=== PATIENT | female | born 1945 | race Caucasian/White ===

== ENCOUNTER 2017-03-01 15:30 | Outpatient (RCR) | payer MEDICARE, SELFPAY ==
[2017-02-22 15:52] VITALS: BP 146/61; PULSE 60; RESP 18; TEMP 37.2; BMI 84.6
--- NOTE | 2017-02-23 16:10 | PCM.WC.HP ---
(1) Stage III pressure ulcer of left buttock Status: Acute Code(s): L89.323 - Pressure ulcer of left buttock, stage 3 (2) Generalized weakness Status: Acute Code(s): R53.1 - Weakness (3) Bipolar disorder Status: Chronic Code(s): F31.9 - Bipolar disorder, unspecified (4) CHF (congestive heart failure) Status: Chronic Code(s): I50.9 - Heart failure, unspecified Comment: diastolic (5) COPD (chronic obstructive pulmonary disease) Status: Chronic Code(s): J44.9 - Chronic obstructive pulmonary disease, unspecified (6) Diastolic dysfunction Status: Chronic Code(s): I51.9 - Heart disease, unspecified History of Present Illness Date of Service: 02/27/17 Chief Complaint: Non healing ulcer left buttock History of Wound: This is a 71-year-old white female who presents to the wound care center today with complaints of ulcer on left buttock. She has a past medical history as described above. The patient states that she has had sores on her buttocks for the past 2 months, however the right buttock sore has healed and the left sore on her buttock is persistent and continues to be painful and occasionally bleed at times. She states that she sits in her chair the majority of the time and denies any current use of offloading mechanisms. She states that the ulcer is progressively worsening. She does note pain but denies any purulent drainage. She states that the surrounding areas are excoriated at times. She does note that she is continent of both stool and urine. She denies any other alleviating or aggravating symptoms and has not tried any [id number] treatments for her ulcers. Past Medical History Past Medical History: Chronic Problems COPD (chronic obstructive pulmonary disease) (Chronic) Diastolic dysfunction (Chronic) Former heavy tobacco smoker (Chronic) quit 07/14/16 Osteoarthritis (Chronic) PVD (peripheral vascular disease) (Chronic) CHF (congestive heart failure) (Chronic) diastolic Diet-controlled diabetes mellitus (Chronic) Morbid obesity (Chronic) HTN (hypertension) (Chronic) Bipolar disorder (Chronic) Dyslipidemia (Chronic) Hyponatremia (Chronic) Surgical History: cataract, cholecystectomy, - - Right knee replacement, right ankle fracture open reduction March 2014 Allergies/Adverse Reactions: Allergies Iodinated Contrast- Oral and IV Dye [Iodinated Contrast Media - IV Dye] Allergy (Verified 02/22/17 16:01) Hives Penicillins Allergy (Verified 02/22/17 16:01) Rash shellfish derived Allergy (Verified 02/22/17 16:01) Rash tetracycline Allergy (Verified 02/22/17 16:01) Rash hydrocodone bitartrate [From Vicodin] Adverse Reaction (Unknown, Verified 02/22/17 16:01) Vomiting meperidine HCl [From Demerol] Adverse Reaction (Unknown, Verified 10/22/16 19:27) Other MAKES ME VERY ILL Home Medications: Ambulatory Orders Medication Instructions Recorded Atenolol [Tenormin (beta sol)] 50 mg PO DAILY 03/26/14 Oxcarbazepine [Trileptal] 600 mg PO BID 03/26/14 Risperidone [Risperdal] 1 mg PO QHS 03/26/14 Trazodone HCl 150 mg PO QHS 03/26/14 Aspirin [Aspirin, Baby] 81 mg PO DAILY@0800 #30 tab.chew 04/18/14 Cholecalciferol (VIT D3) [Vitamin 2,000 unit PO DAILY 10/17/15 D3] Clonazepam [Klonopin] 0.5 mg PO QHS PRN PRN 10/17/15 Clonidine HCl 0.1 mg PO BID 10/17/15 Clopidogrel Bisulfate [Plavix] 75 mg PO DAILY 10/17/15 Meloxicam [Mobic] 15 mg PO DAILY 10/17/15 Amlodipine [Norvasc] 10 mg PO DAILY #30 tablet 10/20/15 Citalopram [Celexa] 20 mg PO DAILY 10/22/16 Donepezil HCl 5 mg PO DAILY 10/22/16 Menthol/Lanolin/Calamine/Znox 1 applic TOPICAL TID #1 tube 10/24/16 [Calmoseptine Ointment] Nystatin Powder [Mycostatin Powder] 1 applic TOPICAL TID #1 bottle 10/24/16 - Family History Maternal Cancer - at age 46, Hypertension Paternal - - Committed suicide age 36 Sibling Cancer - 1 year ago of lung cancer Lives: Alone Smoking Status: Former smoker Review of Systems Constitutional: Denies: Chills, Fever, Weight Change Eyes: Denies: Pain, Vision Change HEENT: Denies: Difficulty Hearing, Difficulty Swallowing, Sinus Congestion Cardiovascular: Denies: Chest Pain, Palpitations Respiratory: Denies: Cough, Shortness of Breath Gastrointestinal: Denies: Diarrhea, Nausea, Vomiting Genitourinary: Denies: Dysuria, Hematuria Skin: Reports: Rash, Wounds Neurological: Denies: Confusion, Numbness, Tingling Psychiatric: Denies: Anxiety Endocrine: Denies: Heat/ Cold Intolerance, Polydipsia, Polyuria Hematologic/ Lymphatic: Denies: Easy Bruising, Easy Bleeding - Physical Exam Vital Signs Temp Pulse Resp BP 98.9 F 60 18 146/61 H 02/22/17 15:52 02/22/17 15:52 02/22/17 15:52 02/22/17 15:52 General: Alert, Oriented x3, Cooperative, No apparent distress HEENT: PERRLA, EOMI Neck: Supple, No JVD, Negative Carotid Bruits Lungs: Clear to auscultation Cardiovascular: Regular rate, Regular Rhythm, No murmurs, No Ectopic Activity Abdomen: Soft, Non Tender Extremities: No clubbing, No cyanosis, No edema, Capillary Refill Less than 3 Seconds, Peripheral Pulses Normal Skin: Ulcer/ Wound - Stage III pressure ulcer full-thickness ulcer without exposed tendon or muscle present on leftt buttocks with slough present, Excoriated - Bilateral buttocks Wound Measurements and Assessment - Nurse 1 - General Ulcer Measurement Start: 02/22/17 15:47 Freq: Status: Active Protocol: Activity Type Activity Date Activity User E-Sign Co-Sign Detail Recorded Client Recorded Date Recorded By Document 02/22/17 15:52 DL [id number] 02/22/17 15:57 DL 02/22/17 15:52 Wound Center Nurse 1 [Ulcer Assessment Protocol: RISHABH.WD.LOC] #3 R Buttocks -Current Size (cm) - Length 1.1 -Current Size (cm) - Width 0.8 -Current Size (cm) - Depth 0.1 -Total Square Cm 0.88 -Photo Taken Yes -Classification - Thickness Full Thickness without Exposed Support Structure -Exudate Amt None Present (0 %) -Wound Margin Distinct, Outline Attached -Granulation Amt Large (67-100%) -Granulation Quality Red -Necrosis Amt None Present (0 %) -Structure Exposed N/A -Texture (Breanne-wound Skin Appearance) No Abnormality -Moisture (Breanne-wound Skin Appearance Dry/Scaly ) -Color (Breanne-wound Skin Appearance) No Abnormality -Temperature (Breanne-wound Skin No Abnormality Appearance) (Pt Warm) -Ulcer Cleansing Rinsed/ Irrigated with Saline -Foul Odor after Cleansing No -Anesthetic Used 4% Lidocaine Solution WC - Nurse 2 - General Ulcer CM Notes Start: 02/22/17 15:47 Freq: Status: Active Protocol: Activity Type Activity Date Activity User E-Sign Co-Sign Detail Recorded Client Recorded Date Recorded By Document 02/22/17 16:54 DV [id number] 02/22/17 17:03 DV 02/22/17 16:54 Wound Center Nurse 2 [Procedure/Treatment] -Time 16:54 -Correct Patient Yes -Correct Side, Site, Position Yes -Correct Procedure Yes -Procedure Performed Yes -Type of Procedure Debridement -Clinical Debridement Subcutaneous -Post Debridement Size (cm) - Length 1.2 -Post Debridement Size (cm) - Width 1.0 -Post Debridement Size (cm) - Depth 0.2 -Total Square Cm 1.20 -Wound/Ulcer Outcome Not Healed -Ulcer Cleansing Rinsed/ Irrigated with Saline -Foul Odor after Cleansing No -Bioengineered Tissue No -Cetacaine [place] No -Bleeding Controlled with NA -Treatment Response Procedure Tolerated Well [See Physician Procedure note for Specifics] Pain Scale: 0-10 Numeric [Pain] -Is Patient Pain Free? Yes Musculoskeletal: No Tenderness to Palpation of Joints or Extremities Neurological: Cranial nerves II-XII grossly intact Psych/Mental Status: Normal Affect, Appropriate, Alert and oriented to time, place, person, mood and affect Debridement Note Post-Debridement Measurements/Treatment - Nurse 2 - General Ulcer CM Notes Start: 02/22/17 15:47 Freq: Status: Active Protocol: Activity Type Activity Date Activity User E-Sign Co-Sign Detail Recorded Client Recorded Date Recorded By Document 02/22/17 16:54 DV [id number] 02/22/17 17:03 DV 02/22/17 16:54 Wound Center Nurse 2 #3 R Buttocks -Time 16:54 -Correct Patient Yes -Correct Side, Site, Position Yes -Correct Procedure Yes -Procedure Performed Yes -Type of Procedure Debridement -Clinical Debridement Subcutaneous -Post Debridement Size (cm) - Length 1.2 -Post Debridement Size (cm) - Width 1.0 -Post Debridement Size (cm) - Depth 0.2 -Total Square Cm 1.20 -Wound/Ulcer Outcome Not Healed -Ulcer Cleansing Rinsed/ Irrigated with Saline -Foul Odor after Cleansing No -Bioengineered Tissue No -Cetacaine [place] No -Bleeding Controlled with NA -Treatment Response Procedure Tolerated Well Pain Scale: 0-10 Numeric Is Patient Pain Free? Yes Wound debrided: Stage III pressure ulcer left buttock Laterality: Left Wound Grade/Stage: Stage III Type of Debridement: Excisional debridement Anesthesia Used: 4% Lidocaine Solution Depth: in the subcutaneous layer Percentage of wound debrided: 100 Instrument Used: 5mm curette Tissue Removed: Fibrin and slough Severity: Fat Layer Exposed Amount of bleeding with debridement: Mild Bleeding Controlled with: Pressure Patient tolerated procedure well Assessment/Plan Assessment: Stage 3 pressure ulcer Left buttock. Generalized weakness Plan: Patient was seen and evaluated in the wound care center today and updated on her plan of care. A subcutaneous debridement was done of her stage III pressure ulcer of the left buttock. Patient tolerated the procedure well. Baseline labs ordered. Discussed with patient the importance of optimizing nutrition which includes increasing the amount of protein and vitamin C in her diet. Daily dressing changes of Aquacel AG ordered. Discussed with patient the importance of offloading mechanisms and keeping the surrounding skin and area dry and clean. Discussed red flag symptoms of systemic infection that require urgent medical attention. Currently no signs of infection at this time. This note was generated with [employer] dictation software. It may contain incorrect words, spelling, and punctuation that were not noted in checking the note before signing.
--- NOTE | 2017-02-23 16:20 | HP.PCM_ITS ---
(1) Stage III pressure ulcer of left buttock Status: Acute Code(s): L89.323 - Pressure ulcer of left buttock, stage 3 (2) Generalized weakness Status: Acute Code(s): R53.1 - Weakness (3) Bipolar disorder Status: Chronic Code(s): F31.9 - Bipolar disorder, unspecified (4) CHF (congestive heart failure) Status: Chronic Code(s): I50.9 - Heart failure, unspecified Comment: diastolic (5) COPD (chronic obstructive pulmonary disease) Status: Chronic Code(s): J44.9 - Chronic obstructive pulmonary disease, unspecified (6) Diastolic dysfunction Status: Chronic Code(s): I51.9 - Heart disease, unspecified History of Present Illness Date of Service: 02/27/17 Chief Complaint: Non healing ulcer left buttock History of Wound: This is a 71-year-old white female who presents to the wound care center today with complaints of ulcer on left buttock. She has a past medical history as described above. The patient states that she has had sores on her buttocks for the past 2 months, however the right buttock sore has healed and the left sore on her buttock is persistent and continues to be painful and occasionally bleed at times. She states that she sits in her chair the majority of the time and denies any current use of offloading mechanisms. She states that the ulcer is progressively worsening. She does note pain but denies any purulent drainage. She states that the surrounding areas are excoriated at times. She does note that she is continent of both stool and urine. She denies any other alleviating or aggravating symptoms and has not tried any [id number] treatments for her ulcers. Past Medical History Past Medical History: Chronic Problems COPD (chronic obstructive pulmonary disease) (Chronic) Diastolic dysfunction (Chronic) Former heavy tobacco smoker (Chronic) quit 07/14/16 Osteoarthritis (Chronic) PVD (peripheral vascular disease) (Chronic) CHF (congestive heart failure) (Chronic) diastolic Diet-controlled diabetes mellitus (Chronic) Morbid obesity (Chronic) HTN (hypertension) (Chronic) Bipolar disorder (Chronic) Dyslipidemia (Chronic) Hyponatremia (Chronic) Surgical History: cataract, cholecystectomy, - - Right knee replacement, right ankle fracture open reduction March 2014 Allergies/Adverse Reactions: Allergies Iodinated Contrast- Oral and IV Dye [Iodinated Contrast Media - IV Dye] Allergy (Verified 02/22/17 16:01) Hives Penicillins Allergy (Verified 02/22/17 16:01) Rash shellfish derived Allergy (Verified 02/22/17 16:01) Rash tetracycline Allergy (Verified 02/22/17 16:01) Rash hydrocodone bitartrate [From Vicodin] Adverse Reaction (Unknown, Verified 16:01) Vomiting meperidine HCl [From Demerol] Adverse Reaction (Unknown, Verified 10/22/16 19:27 ) Other MAKES ME VERY ILL Home Medications: Ambulatory Orders Medication Instructions Recorded Atenolol [Tenormin (beta sol)] 50 mg PO DAILY 03/26/14 Oxcarbazepine [Trileptal] 600 mg PO BID 03/26/14 Risperidone [Risperdal] 1 mg PO QHS 03/26/14 Trazodone HCl 150 mg PO QHS 03/26/14 Aspirin [Aspirin, Baby] 81 mg PO DAILY@0800 #30 tab.chew 04/18/14 Cholecalciferol (VIT D3) [Vitamin 2,000 unit PO DAILY 10/17/15 D3] Clonazepam [Klonopin] 0.5 mg PO QHS PRN PRN 10/17/15 Clonidine HCl 0.1 mg PO BID 10/17/15 Clopidogrel Bisulfate [Plavix] 75 mg PO DAILY 10/17/15 Meloxicam [Mobic] 15 mg PO DAILY 10/17/15 Amlodipine [Norvasc] 10 mg PO DAILY #30 tablet 10/20/15 Citalopram [Celexa] 20 mg PO DAILY 10/22/16 Donepezil HCl 5 mg PO DAILY 10/22/16 Menthol/Lanolin/Calamine/Znox 1 applic TOPICAL TID #1 tube 10/24/16 [Calmoseptine Ointment] Nystatin Powder [Mycostatin Powder] 1 applic TOPICAL TID #1 bottle 10/24/16 - Family History Maternal Cancer - at age 46, Hypertension Paternal - - Committed suicide age 36 Sibling Cancer - 1 year ago of lung cancer Lives: Alone Smoking Status: Former smoker Review of Systems Constitutional: Denies: Chills, Fever, Weight Change Eyes: Denies: Pain, Vision Change HEENT: Denies: Difficulty Hearing, Difficulty Swallowing, Sinus Congestion Cardiovascular: Denies: Chest Pain, Palpitations Respiratory: Denies: Cough, Shortness of Breath Gastrointestinal: Denies: Diarrhea, Nausea, Vomiting Genitourinary: Denies: Dysuria, Hematuria Skin: Reports: Rash, Wounds Neurological: Denies: Confusion, Numbness, Tingling Psychiatric: Denies: Anxiety Endocrine: Denies: Heat/ Cold Intolerance, Polydipsia, Polyuria Hematologic/ Lymphatic: Denies: Easy Bruising, Easy Bleeding - Physical Exam Vital Signs Temp Pulse Resp BP 98.9 F 60 18 146/61 H 02/22/17 15:52 02/22/17 15:52 02/22/17 15:52 02/22/17 15:52 General: Alert, Oriented x3, Cooperative, No apparent distress HEENT: PERRLA, EOMI Neck: Supple, No JVD, Negative Carotid Bruits Lungs: Clear to auscultation Cardiovascular: Regular rate, Regular Rhythm, No murmurs, No Ectopic Activity Abdomen: Soft, Non Tender Extremities: No clubbing, No cyanosis, No edema, Capillary Refill Less than 3 Seconds, Peripheral Pulses Normal Skin: Ulcer/ Wound - Stage III pressure ulcer full-thickness ulcer without exposed tendon or muscle present on leftt buttocks with slough present, Excoriated - Bilateral buttocks Wound Measurements and Assessment - Nurse 1 - General Ulcer Measurement Start: 02/22/17 15:47 Freq: Status: Active Protocol: Activity Type Activity Date Activity User E-Sign Co-Sign Detail Recorded Client Recorded Date Recorded By Document 02/22/17 15:52 DL [id number] 02/22/17 15:57 DL 02/22/17 15:52 Wound Center Nurse 1 [Ulcer Assessment Protocol: RISHABH.WD.LOC] #3 R Buttocks -Current Size (cm) - Length 1.1 -Current Size (cm) - Width 0.8 -Current Size (cm) - Depth 0.1 -Total Square Cm 0.88 -Photo Taken Yes -Classification - Thickness Full Thickness without Exposed Support Structure -Exudate Amt None Present (0 %) -Wound Margin Distinct, Outline Attached -Granulation Amt Large (67-100%) -Granulation Quality Red -Necrosis Amt None Present (0 %) -Structure Exposed N/A -Texture (Breanne-wound Skin Appearance) No Abnormality -Moisture (Breanne-wound Skin Appearance Dry/Scaly ) -Color (Breanne-wound Skin Appearance) No Abnormality -Temperature (Breanne-wound Skin No Abnormality Appearance) (Pt Warm) -Ulcer Cleansing Rinsed/ Irrigated with Saline -Foul Odor after Cleansing No -Anesthetic Used 4% Lidocaine Solution WC - Nurse 2 - General Ulcer CM Notes Start: 02/22/17 15:47 Freq: Status: Active Protocol: Activity Type Activity Date Activity User E-Sign Co-Sign Detail Recorded Client Recorded Date Recorded By Document 02/22/17 16:54 DV [id number] 02/22/17 17:03 DV 02/22/17 16:54 Wound Center Nurse 2 [Procedure/Treatment] -Time 16:54 -Correct Patient Yes -Correct Side, Site, Position Yes -Correct Procedure Yes -Procedure Performed Yes -Type of Procedure Debridement -Clinical Debridement Subcutaneous -Post Debridement Size (cm) - Length 1.2 -Post Debridement Size (cm) - Width 1.0 -Post Debridement Size (cm) - Depth 0.2 -Total Square Cm 1.20 -Wound/Ulcer Outcome Not Healed -Ulcer Cleansing Rinsed/ Irrigated with Saline -Foul Odor after Cleansing No -Bioengineered Tissue No -Cetacaine [place] No -Bleeding Controlled with NA -Treatment Response Procedure Tolerated Well [See Physician Procedure note for Specifics] Pain Scale: 0-10 Numeric [Pain] -Is Patient Pain Free? Yes Musculoskeletal: No Tenderness to Palpation of Joints or Extremities Neurological: Cranial nerves II-XII grossly intact Psych/Mental Status: Normal Affect, Appropriate, Alert and oriented to time, place, person, mood and affect Debridement Note Post-Debridement Measurements/Treatment - Nurse 2 - General Ulcer CM Notes Start: 02/22/17 15:47 Freq: Status: Active Protocol: Activity Type Activity Date Activity User E-Sign Co-Sign Detail Recorded Client Recorded Date Recorded By Document 02/22/17 16:54 DV [id number] 02/22/17 17:03 DV 02/22/17 16:54 Wound Center Nurse 2 #3 R Buttocks -Time 16:54 -Correct Patient Yes -Correct Side, Site, Position Yes -Correct Procedure Yes -Procedure Performed Yes -Type of Procedure Debridement -Clinical Debridement Subcutaneous -Post Debridement Size (cm) - Length 1.2 -Post Debridement Size (cm) - Width 1.0 -Post Debridement Size (cm) - Depth 0.2 -Total Square Cm 1.20 -Wound/Ulcer Outcome Not Healed -Ulcer Cleansing Rinsed/ Irrigated with Saline -Foul Odor after Cleansing No -Bioengineered Tissue No -Cetacaine [place] No -Bleeding Controlled with NA -Treatment Response Procedure Tolerated Well Pain Scale: 0-10 Numeric Is Patient Pain Free? Yes Wound debrided: Stage III pressure ulcer left buttock Laterality: Left Wound Grade/Stage: Stage III Type of Debridement: Excisional debridement Anesthesia Used: 4% Lidocaine Solution Depth: in the subcutaneous layer Percentage of wound debrided: 100 Instrument Used: 5mm curette Tissue Removed: Fibrin and slough Severity: Fat Layer Exposed Amount of bleeding with debridement: Mild Bleeding Controlled with: Pressure Patient tolerated procedure well Assessment/Plan Assessment: Stage 3 pressure ulcer Left buttock. Generalized weakness Plan: Patient was seen and evaluated in the wound care center today and updated on her plan of care. A subcutaneous debridement was done of her stage III pressure ulcer of the left buttock. Patient tolerated the procedure well. Baseline labs ordered. Discussed with patient the importance of optimizing nutrition which includes increasing the amount of protein and vitamin C in her diet. Daily dressing changes of Aquacel AG ordered. Discussed with patient the importance of offloading mechanisms and keeping the surrounding skin and area dry and clean. Discussed red flag symptoms of systemic infection that require urgent medical attention. Currently no signs of infection at this time. This note was generated with [employer] dictation software. It may contain incorrect words, spelling, and punctuation that were not noted in checking the note before signing.
[2017-03-01 15:59] VITALS: BP 153/76; PULSE 63; RESP 22; TEMP 36.6; BMI 84.6
--- NOTE | 2017-03-01 20:46 | PCM.WC.PN ---
(1) Stage III pressure ulcer of left buttock Status: Inactive Current Visit: Yes Code(s): L89.323 - Pressure ulcer of left buttock, stage 3 (2) Generalized weakness Status: Inactive Current Visit: Yes Code(s): R53.1 - Weakness (3) Bipolar disorder Status: Inactive Current Visit: No Code(s): F31.9 - Bipolar disorder, unspecified (4) CHF (congestive heart failure) Status: Inactive Current Visit: No Code(s): I50.9 - Heart failure, unspecified Comment: diastolic (5) COPD (chronic obstructive pulmonary disease) Status: Chronic Current Visit: No Qualifiers: COPD type: unspecified COPD Qualified Code(s): J44.9 - Chronic obstructive pulmonary disease, unspecified Code(s): J44.9 - Chronic obstructive pulmonary disease, unspecified (6) Diastolic dysfunction Status: Chronic Current Visit: No Code(s): I51.9 - Heart disease, unspecified Type of Wound Date of Service: 03/01/17 Chief Complaint: Non healing ulcer left buttock History of Wound: This is a 71-year-old white female who presents to the wound care center today with complaints of ulcer on left buttock. She has a past medical history as described above. The patient states that she has had sores on her buttocks for the past 2 months, however the right buttock sore has healed and the left sore on her buttock is persistent and continues to be painful and occasionally bleed at times. She states that she sits in her chair the majority of the time and denies any current use of offloading mechanisms. She states that the ulcer is progressively worsening. She does note pain but denies any purulent drainage. She states that the surrounding areas are excoriated at times. She does note that she is continent of both stool and urine. She denies any other alleviating or aggravating symptoms and has not tried any [id number]-lwmvxgz treatments for her ulcers. Progress of Wound: Stable, improving. - Physical Exam Vital Signs Temp Pulse Resp BP 97.9 F 63 22 H 153/76 H 03/01/17 15:59 03/01/17 15:59 03/01/17 15:59 03/01/17 15:59 General: Alert, Oriented x3, Cooperative, No apparent distress Cardiovascular: Regular rate Extremities: No clubbing, No cyanosis, No edema, Capillary Refill Less than 3 Seconds Skin: Ulcer/ Wound - Stage III pressure ulcer left buttock, no signs of infection at this time, wound edges somewhat macerated though improving, excoriation on left and right buttocks resolving Wound Measurements and Assessment - Nurse 1 - General Ulcer Measurement Start: 02/22/17 15:47 Freq: Status: Active Protocol: Activity Type Activity Date Activity User E-Sign Co-Sign Detail Recorded Client Recorded Date Recorded By Document 03/01/17 15:59 DL [id number] 03/01/17 16:03 DL 03/01/17 15:59 Wound Center Nurse 1 [Ulcer Assessment Protocol: RISHABH.WD.LOC] #3 Left Buttock -Current Size (cm) - Length 0.8 -Current Size (cm) - Width 0.7 -Current Size (cm) - Depth 0.1 -Total Square Cm 0.56 -Photo Taken No -Exudate Amt Small (1-33%) -Exudate Type Serosanguineous -Wound Margin Distinct, Outline Attached -Granulation Amt Large (67-100%) -Granulation Quality Red -Necrosis Amt None Present (0 %) -Structure Exposed N/A -Texture (Breanne-wound Skin Appearance) Scarring -Moisture (Breanne-wound Skin Appearance No Abnormality ) -Color (Breanne-wound Skin Appearance) Ecchymosis -Temperature (Breanne-wound Skin No Abnormality Appearance) (Pt Warm) -Ulcer Cleansing Rinsed/ Irrigated with Saline -Foul Odor after Cleansing No -Anesthetic Used 4% Lidocaine Solution - Nurse 2 - General Ulcer CM Notes Start: 02/22/17 15:47 Freq: Status: Active Protocol: Activity Type Activity Date Activity User E-Sign Co-Sign Detail Recorded Client Recorded Date Recorded By Document 03/01/17 17:09 DV [id number] 03/01/17 17:11 DV 03/01/17 17:09 Wound Center Nurse 2 [Procedure/Treatment] -Time 17:10 -Correct Patient Yes -Correct Side, Site, Position Yes -Correct Procedure Yes -Procedure Performed No -Post Debridement Size (cm) - Length 1.0 -Post Debridement Size (cm) - Width 0.9 -Post Debridement Size (cm) - Depth 0.1 -Total Square Cm 0.90 -Wound/Ulcer Outcome Not Healed -Ulcer Cleansing Rinsed/ Irrigated with Saline -Foul Odor after Cleansing No -Bioengineered Tissue No -Cetacaine [place] No -Bleeding Controlled with Pressure -Treatment Response Procedure Tolerated Well [See Physician Procedure note for Specifics] Pain Scale: 0-10 Numeric [Pain] -Is Patient Pain Free? Yes Musculoskeletal: No Tenderness to Palpation of Joints or Extremities Psych/Mental Status: Normal Affect, Appropriate, Alert and oriented to time, place, person, mood and affect Debridement Note Post-Debridement Measurements/Treatment WC - Nurse 2 - General Ulcer CM Notes Start: 02/22/17 15:47 Freq: Status: Active Protocol: Activity Type Activity Date Activity User E-Sign Co-Sign Detail Recorded Client Recorded Date Recorded By Document 02/22/17 16:54 DV [id number] 02/22/17 17:03 DV Document 03/01/17 17:09 DV [id number] 03/01/17 17:11 DV 02/22/17 03/01/17 16:54 17:09 Wound Center Nurse 2 #3 Left Buttock -Time 16:54 17:10 -Correct Patient Yes Yes -Correct Side, Site, Position Yes Yes -Correct Procedure Yes Yes -Procedure Performed Yes No -Type of Procedure Debridement -Clinical Debridement Subcutaneous -Post Debridement Size (cm) - Length 1.2 1.0 -Post Debridement Size (cm) - Width 1.0 0.9 -Post Debridement Size (cm) - Depth 0.2 0.1 -Total Square Cm 1.20 0.90 -Wound/Ulcer Outcome Not Healed Not Healed -Ulcer Cleansing Rinsed/ Rinsed/ Irrigated with Irrigated with Saline Saline -Foul Odor after Cleansing No No -Bioengineered Tissue No No -Cetacaine [place] No No -Bleeding Controlled with NA Pressure -Treatment Response Procedure Procedure Tolerated Well Tolerated Well Pain Scale: 0-10 Numeric Is Patient Pain Free? Yes Yes Wound debrided: Stage III pressure ulcer left buttock Laterality: Left Wound Grade/Stage: Stage III Anesthesia Used: 4% Lidocaine Solution Depth: in the subcutaneous layer Percentage of wound debrided: 100 Instrument Used: 5mm curette Tissue Removed: Fibrin, slough, devitalized maceration tissue removed from wound and edges Severity: Fat Layer Exposed Amount of bleeding with debridement: Mild Bleeding Controlled with: Pressure Patient tolerated procedure well Assessment/Plan Assessment: Stage 3 pressure ulcer Left buttock. Generalized weakness Plan: Patient was seen and evaluated in the wound care center today and updated on her plan of care. A subcutaneous debridement was done of her stage III pressure ulcer of the left buttock. Patient tolerated the procedure well. Baseline labs pending. Discussed with patient the importance of optimizing nutrition which includes increasing the amount of protein and vitamin C in her diet. Daily dressing changes of Aquacel AG ordered. Wound edges were somewhat macerated and patient admitted that her was putting some triple antibiotic ointment on the wound at times. Advised patient to no longer do this and strictly use the Aquacel Ag. Discussed with patient the importance of offloading mechanisms and keeping the surrounding skin and area dry and clean. Discussed red flag symptoms of systemic infection that require urgent medical attention. Currently no signs of infection at this time. This note was generated with [employer] dictation software. It may contain incorrect words, spelling, and punctuation that were not noted in checking the note before signing. Code Visit 111xxx-113xx: [id number] Vianney subq tissue 20 sq cm/<
--- NOTE | 2017-03-02 10:53 | PN.PCM_ITS ---
(1) Stage III pressure ulcer of left buttock Status: Inactive Current Visit: Yes Code(s): L89.323 - Pressure ulcer of left buttock, stage 3 (2) Generalized weakness Status: Inactive Current Visit: Yes Code(s): R53.1 - Weakness (3) Bipolar disorder Status: Inactive Current Visit: No Code(s): F31.9 - Bipolar disorder, unspecified (4) CHF (congestive heart failure) Status: Inactive Current Visit: No Code(s): I50.9 - Heart failure, unspecified Comment: diastolic (5) COPD (chronic obstructive pulmonary disease) Status: Chronic Current Visit: No Qualifiers: COPD type: unspecified COPD Qualified Code(s): J44.9 - Chronic obstructive pulmonary disease, unspecified Code(s): J44.9 - Chronic obstructive pulmonary disease, unspecified (6) Diastolic dysfunction Status: Chronic Current Visit: No Code(s): I51.9 - Heart disease, unspecified Type of Wound Date of Service: 03/01/17 Chief Complaint: Non healing ulcer left buttock History of Wound: This is a 71-year-old white female who presents to the wound care center today with complaints of ulcer on left buttock. She has a past medical history as described above. The patient states that she has had sores on her buttocks for the past 2 months, however the right buttock sore has healed and the left sore on her buttock is persistent and continues to be painful and occasionally bleed at times. She states that she sits in her chair the majority of the time and denies any current use of offloading mechanisms. She states that the ulcer is progressively worsening. She does note pain but denies any purulent drainage. She states that the surrounding areas are excoriated at times. She does note that she is continent of both stool and urine. She denies any other alleviating or aggravating symptoms and has not tried any werj-zdt-tmouilm treatments for her ulcers. Progress of Wound: Stable, improving. - Physical Exam Vital Signs Temp Pulse Resp BP 97.9 F 63 22 H 153/76 H 03/01/17 15:59 03/01/17 15:59 03/01/17 15:59 03/01/17 15:59 General: Alert, Oriented x3, Cooperative, No apparent distress Cardiovascular: Regular rate Extremities: No clubbing, No cyanosis, No edema, Capillary Refill Less than 3 Seconds Skin: Ulcer/ Wound - Stage III pressure ulcer left buttock, no signs of infection at this time, wound edges somewhat macerated though improving, excoriation on left and right buttocks resolving Wound Measurements and Assessment - Nurse 1 - General Ulcer Measurement Start: 02/22/17 15:47 Freq: Status: Active Protocol: Activity Type Activity Date Activity User E-Sign Co-Sign Detail Recorded Client Recorded Date Recorded By Document 03/01/17 15:59 DL [id number] 03/01/17 16:03 DL 03/01/17 15:59 Wound Center Nurse 1 [Ulcer Assessment Protocol: RISHABH.WD.LOC] #3 Left Buttock -Current Size (cm) - Length 0.8 -Current Size (cm) - Width 0.7 -Current Size (cm) - Depth 0.1 -Total Square Cm 0.56 -Photo Taken No -Exudate Amt Small (1-33%) -Exudate Type Serosanguineous -Wound Margin Distinct, Outline Attached -Granulation Amt Large (67-100%) -Granulation Quality Red -Necrosis Amt None Present (0 %) -Structure Exposed N/A -Texture (Beranne-wound Skin Appearance) Scarring -Moisture (Breanne-wound Skin Appearance No Abnormality ) -Color (Breanne-wound Skin Appearance) Ecchymosis -Temperature (Breanne-wound Skin No Abnormality Appearance) (Pt Warm) -Ulcer Cleansing Rinsed/ Irrigated with Saline -Foul Odor after Cleansing No -Anesthetic Used 4% Lidocaine Solution - Nurse 2 - General Ulcer CM Notes Start: 02/22/17 15:47 Freq: Status: Active Protocol: Activity Type Activity Date Activity User E-Sign Co-Sign Detail Recorded Client Recorded Date Recorded By Document 03/01/17 17:09 DV [id number] 03/01/17 17:11 DV 03/01/17 17:09 Wound Center Nurse 2 [Procedure/Treatment] -Time 17:10 -Correct Patient Yes -Correct Side, Site, Position Yes -Correct Procedure Yes -Procedure Performed No -Post Debridement Size (cm) - Length 1.0 -Post Debridement Size (cm) - Width 0.9 -Post Debridement Size (cm) - Depth 0.1 -Total Square Cm 0.90 -Wound/Ulcer Outcome Not Healed -Ulcer Cleansing Rinsed/ Irrigated with Saline -Foul Odor after Cleansing No -Bioengineered Tissue No -Cetacaine [place] No -Bleeding Controlled with Pressure -Treatment Response Procedure Tolerated Well [See Physician Procedure note for Specifics] Pain Scale: 0-10 Numeric [Pain] -Is Patient Pain Free? Yes Musculoskeletal: No Tenderness to Palpation of Joints or Extremities Psych/Mental Status: Normal Affect, Appropriate, Alert and oriented to time, place, person, mood and affect Debridement Note Post-Debridement Measurements/Treatment WC - Nurse 2 - General Ulcer CM Notes Start: 02/22/17 15:47 Freq: Status: Active Protocol: Activity Type Activity Date Activity User E-Sign Co-Sign Detail Recorded Client Recorded Date Recorded By Document 02/22/17 16:54 DV [id number] 02/22/17 17:03 DV Document 03/01/17 17:09 DV [id number] 03/01/17 17:11 DV 02/22/17 03/01/17 16:54 17:09 Wound Center Nurse 2 #3 Left Buttock -Time 16:54 17:10 -Correct Patient Yes Yes -Correct Side, Site, Position Yes Yes -Correct Procedure Yes Yes -Procedure Performed Yes No -Type of Procedure Debridement -Clinical Debridement Subcutaneous -Post Debridement Size (cm) - Length 1.2 1.0 -Post Debridement Size (cm) - Width 1.0 0.9 -Post Debridement Size (cm) - Depth 0.2 0.1 -Total Square Cm 1.20 0.90 -Wound/Ulcer Outcome Not Healed Not Healed -Ulcer Cleansing Rinsed/ Rinsed/ Irrigated with Irrigated with Saline Saline -Foul Odor after Cleansing No No -Bioengineered Tissue No No -Cetacaine [place] No No -Bleeding Controlled with NA Pressure -Treatment Response Procedure Procedure Tolerated Well Tolerated Well Pain Scale: 0-10 Numeric Is Patient Pain Free? Yes Yes Wound debrided: Stage III pressure ulcer left buttock Laterality: Left Wound Grade/Stage: Stage III Anesthesia Used: 4% Lidocaine Solution Depth: in the subcutaneous layer Percentage of wound debrided: 100 Instrument Used: 5mm curette Tissue Removed: Fibrin, slough, devitalized maceration tissue removed from wound and edges Severity: Fat Layer Exposed Amount of bleeding with debridement: Mild Bleeding Controlled with: Pressure Patient tolerated procedure well Assessment/Plan Assessment: Stage 3 pressure ulcer Left buttock. Generalized weakness Plan: Patient was seen and evaluated in the wound care center today and updated on her plan of care. A subcutaneous debridement was done of her stage III pressure ulcer of the left buttock. Patient tolerated the procedure well. Baseline labs pending. Discussed with patient the importance of optimizing nutrition which includes increasing the amount of protein and vitamin C in her diet. Daily dressing changes of Aquacel AG ordered. Wound edges were somewhat macerated and patient admitted that her was putting some triple antibiotic ointment on the wound at times. Advised patient to no longer do this and strictly use the Aquacel Ag. Discussed with patient the importance of offloading mechanisms and keeping the surrounding skin and area dry and clean. Discussed red flag symptoms of systemic infection that require urgent medical attention. Currently no signs of infection at this time. This note was generated with [employer] dictation software. It may contain incorrect words, spelling, and punctuation that were not noted in checking the note before signing. Code Visit 111xxx-113xx: [id number] Vianney subq tissue 20 sq cm/<
== END 2017-03-14 23:59 ==
LOC: WC 15:30
PROVIDERS: Family Provider Internal Medicine; PCP Internal Medicine; Visit Provider Nurse Practitioner Family
DX: I73.9 Peripheral vascular disease, unspecified (principal); L89.323 Pressure ulcer of left buttock, stage 3; R53.1 Weakness; F31.9 Bipolar disorder, unspecified; J44.9 Chronic obstructive pulmonary disease, unspecified; I50.32 Chronic diastolic (congestive) heart failure; M19.90 Unspecified osteoarthritis, unspecified site; I11.0 Hypertensive heart disease with heart failure; E78.5 Hyperlipidemia, unspecified; E66.01 Morbid (severe) obesity due to excess calories; Z71.3 Dietary counseling and surveillance; Z87.891 Personal history of nicotine dependence; Z79.899 Other long term (current) drug therapy; Z79.82 Long term (current) use of aspirin; Z79.02 Long term (current) use of antithrombotics/antiplatelets
CPT/HCPCS: 11042; 99213; G0463

== ENCOUNTER 2017-09-28 19:13 | Emergency (ER) | payer MEDICARE, SELFPAY ==
[2017-09-28 19:14] VITALS: BP 162/95; PULSE 63; RESP 16; TEMP 37.1; O2SAT 92; BMI 43.2
--- NOTE | 2017-09-28 19:41 | ED.VISSUMM ---
- ER Visit Summary Date of Service: 09/28/17 Chief Complaint: My medications wrong History of Present Illness: The patient is a [address] Chávez. She reports that at noon she actually took her night medications which include trazodone, Risperdal, gabapentin, and Benadryl. She was supposed to have taken Lasix and amlodipine. She reports that the visiting nurse came out and found that her blood pressure was 146-198 systolic over 75-101 diastolic. Review of systems: General: No fever, chills, cold sweats. Cardiovascular: No chest pain, palpitations. Respiratory: No cough, shortness of breath, dyspnea on exertion. Gastrointestinal: No abdominal pain, nausea, vomiting, diarrhea, melena, or hematochezia. Genitourinary: No dysuria, frequency, hematuria. Skin: No rash. Neuro: No headache, numbness, weakness. Physical Examination: Vitals: Stable. Afebrile. General: Well-nourished and well-developed. Head: Normocephalic atraumatic. Neck: Supple, no lymphadenopathy. No JVD. Nontender. Cardiovascular: Regular rate and rhythm. No murmurs. Respiratory: No respiratory distress. Clear to auscultation bilaterally. Abdominal: Soft, nontender, nondistended, normal bowel sounds. No guarding, rebound, or peritoneal signs. Back: Nontender. Extremities: Nontender, no edema. Skin: Normal color, no rash. Neurologic: Alert and oriented ?3. Cranial nerves II through XII are intact. Normal strength and sensation. Psych: Normal affect. Emergency Department Course and Treatment: Patient took her Lasix and amlodipine approximately 2 hours prior to coming emergency department. Her blood pressure is now stable. She feels well and would like to go home. Treatment Plan: Patient be discharged instructions are per primary care physician 1 to days not improving. Return to the emergency department for any worsening symptoms. Disposition: To home in improved and stable condition. Impression: 1. Medication error. This note was generated with [employer] software. It may contain incorrect words, spelling, and punctuation that were not noted in review of the chart prior to signing ED Disposition - Plan for ED Patient: Disposition: Home or Assisted Living Chief Complaint: Weakness Instructions: ED Overdose Accidental Referrals: Zach Chávez MD [Primary Care Provider] - 1-2 Days if not improving
[2017-09-28 19:55] VITALS: BP 125/77; PULSE 87; RESP 16; O2SAT 98
== END 2017-09-28 19:56 | disposition home or self-care (01) ==
LOC: ED 19:42
PROVIDERS: Emergency Provider Emergency Medicine; Family Provider Internal Medicine; PCP Internal Medicine
DX: T43.211A Poisoning by selective serotonin and norepinephrine reuptake inhibitors, accidental (unintentional), initial encounter (principal); T43.591A Poisoning by other antipsychotics and neuroleptics, accidental (unintentional), initial encounter; T42.6X1A Poisoning by other antiepileptic and sedative-hypnotic drugs, accidental (unintentional), initial encounter; T45.0X1A Poisoning by antiallergic and antiemetic drugs, accidental (unintentional), initial encounter; I10 Essential (primary) hypertension; Y92.9 Unspecified place or not applicable; E78.00 Pure hypercholesterolemia, unspecified; J44.9 Chronic obstructive pulmonary disease, unspecified; F32.9 Major depressive disorder, single episode, unspecified; Z79.82 Long term (current) use of aspirin; Z79.01 Long term (current) use of anticoagulants; Z79.899 Other long term (current) drug therapy
CPT/HCPCS: 99282

== ENCOUNTER → 2018-05-23 12:10 | Outpatient (CLI) | payer MEDICARE, SELFPAY ==
--- NOTE | 2018-05-23 12:15 | RAD_ITS ---
STUDY: X-RAY - CERVICAL SPINE REASON FOR EXAM: Female, 72 years old. Chronic pain TECHNIQUE: Frontal, lateral, and odontoid view(s) of the cervical spine were obtained. COMPARISON: None FINDINGS: Normal anterior atlantoaxial articulation. Normal odontoid process. There is limited visualization of the cervicothoracic junction. Normal cervical lordosis. There is diffuse demineralization of the cervical spine. Normal disc space heights. There is no fracture. There are atherosclerotic vascular calcifications of the carotid arteries. RAD/Cerv Spine 2 or 3 Views IMPRESSION: No fracture. Disc spaces are well-preserved. Electronically Signed: Harpal Fuentes MD at 15:51 EDT , Service support ,
--- NOTE | 2018-05-23 12:15 | RAD_ITS ---
STUDY: X-RAY - LUMBAR SPINE REASON FOR EXAM: Female, 72 years old. Pain. TECHNIQUE: 3 view(s) of the lumbar spine were obtained. COMPARISON: October 20, 2015 FINDINGS: Normal lumbar lordosis. There is no substantial scoliosis. There is a normal alignment of the vertebrae. Normal vertebral bodies and endplates. There is disc space narrowing at L5-S1. There is no demonstrated fracture. There is atherosclerotic calcification of the abdominal aorta without a demonstrated aneurysm. RAD/Lumbar Spine 2 or 3 Views IMPRESSION: Degenerative changes of the spine, as detailed above. Electronically Signed: Harpal Fuentes MD at 15:50 EDT , Service support ,
--- NOTE | 2018-05-23 12:15 | RAD_ITS ---
STUDY: X-RAY - THORACIC SPINE REASON FOR EXAM: Female, 72 years old. Chronic back pain TECHNIQUE: 4 view(s) of the thoracic spine were obtained. COMPARISON: None. FINDINGS: Normal kyphosis of the thoracic spine. There is no substantial scoliosis. There is multilevel endplate spondylosis of the thoracic vertebrae. There is multilevel disc space narrowing of the thoracic spine. The soft tissue structures are unremarkable. RAD/Thoracic Spine 3 Views IMPRESSION: Degenerative changes without acute findings Electronically Signed: Bob Merino DO at 13:43 EDT Tel , Service support ,
--- NOTE | 2018-05-23 12:16 | RAD_ITS ---
STUDY: X-RAY - RIGHT KNEE REASON FOR EXAM: Female, 72 years old. Chronic pain. TECHNIQUE: 2 view(s) of the knee. COMPARISON: March 26, 2014. FINDINGS: There is demineralization of the visualized distal femur. There is demineralization of the tibia and fibula. Normal proximal tibiofibular articulation. There is knee replacement.. Alignment is anatomic. Appearance is stable . There are atherosclerotic calcifications. RAD/Knee 1 or 2 Views IMPRESSION: Stable knee replacement. Electronically Signed: Harpal Fuentes MD at 13:00 EDT , Service support ,
== END ==
PROVIDERS: Family Provider Internal Medicine; PCP Internal Medicine; Referring Provider Anesthesiology Pain Medicine; Visit Provider Anesthesiology Pain Medicine
DX: M54.2 Cervicalgia (principal); M54.9 Dorsalgia, unspecified; M25.561 Pain in right knee
CPT/HCPCS: 72040; 72072; 72100; 73560

== ENCOUNTER 2018-07-19 13:30 | Outpatient (RCR) | payer MEDICARE, SELFPAY ==
--- NOTE | 2018-06-21 13:00 | HP.PTEVAL_ITS ---
Patient's Visit Information ALEC DAVIS is a 72 year old F referred to Physical Therapy by Mary Villavicencio MD with a diagnosis of BACK PAIN ,BALANCE. Date of Evaluation: 06/21/18 Physical Therapist: Carlito Blair PT, Cert MDT, OCS - Visit Plan Frequency: 2x /Week Duration: 4 Weeks Plan: INTERVETIONS TO INCLUDE BALANCE AND GAIT PROGRAM,DLS PROGRAM,LE STRENGTHENING,POSTURAL EX'S - Subjective Findings: This 72 y/o female presents to physical therapy with back pain and balance.Patient has had back pain many years. Patient also has falling 3 x past month. Patient c/o being tired and fatigued all the time. Patient has lumbar pain symmrical lumbar described as ache. Patient seen DR Hazel pain management for pain epidural injections. Patient has parathesia/tingling in legs. Coughing/sneezing -. Bowel/bladder - .Patient c/o weakness in legs. Patient symptoms affects sleeping. Patient has dizziness. Patient does use fww at home. Pateint back pain worse with walking,standing,sitting ,bending. Alleviating factors rest in bed. Patient is very inactive at [facility] sleeps alot and in bed. Patient limited with all ADL'S and no housework tasks. Pateint co ndtion affect QOL. SOCAIL : . VOCATION: retired - Pain Bilateral Back Pain Intensity (Out of 10): 9 Pain Intensity Range: 10 - Objective POSTURE: mild foward posture ,hip/knees flexed. NEURO: c/o parathesia/tingling legs ,reflexes L3-4,L4-5,L5-S1. SYMMTRIES: align. PALPATION: tender L-S. GAIT: ambulates with anatalgic gait slow cadnece foward posture 2 point cane unsteady. BALANCE: fair with cane. MMT: quads/hams 4-/5,3+/5 hip ,ankle 4/5. LUMBAR ROM; flexion mod loss ,extension severemod loss,side glides mod loss pain. FLEXABLITY: hams mod loss - Special Tests L/S Slump test left side: Negative L/S Slump test right side: Negative L/S Left Straight Leg Raise: Negative L/S Right Straight Leg Raise: Negative - Balance Scores Functional Gait Assessment Score: 2 % Disability: 93.3400 CATSIB Score (Max score 120 seconds): 10 - Goals Goal 1:: Patient to be Independant with HEP Goal Time Frame: 4-6 Weeks Goal 2:: Pateint to increase strength to 4/5 to improve function with gait. Goal Time Frame: 4-6 Weeks Goal 3:: Patient to improve CATSIB score by 10 points to decrease risk of falls. Goal Time Frame: 4-6 Weeks Goal 4:: Patient to improve gait assessement score by 10 points to decrease risk of falls Goal Time Frame: 4-6 Weeks Goal 5:: Patient to improve LFES score by 10 points to improve QOL. Goal Time Frame: 4-6 Weeks - Rehabilitation Potential Physical Therapy Diagnosis: This patient has multiple comrbities along with decrease balance, back pain with weakness LE,falls,unstaedy gait impairs ADL'S and houseworks , Rehabilitation Potential: Fair - Anticipated Interventions Patient/Client Instruction: Educate patient on: Condition, Plan of Care For the Purpose of:: To decrease pain, To increase ROM, To improve muscle performance and motor function, To improve ability to perform ADL's, To increase tolerance to activity/condition/position, To improve performance and independence with ADL's, To decrease level of supervision to perform tasks, To improve ability of physical actions for home/community/work/leisure, To improve gait and locomotor functions, To increase flexibility/ROM, To improve endurance, To improve balance, To improve safety with gait, To improve ability to perform tasks related to life management Therapeutic Exercise to Include: Strength training, Endurance training, Balance training, Postural training, Flexibilty training, Gait and locomotor training, Dynamic Lumbar Stabilization For the Purpose of:: To decrease pain, To increase ROM, To improve muscle performance and motor function, To improve ability to perform ADL's, To increase tolerance to activity/condition/position, To improve performance and independence with ADL's, To decrease level of supervision to perform tasks, To improve ability of physical actions for home/community/work/leisure, To improve health of tissue, To decrease soft tissue restriction, To increase flexibility/ROM, To improve endurance, To improve balance TENS: Yes IF ES: Yes Cryotherapy (ice pack, ice massage): Yes Thermo therapy (hot pack): Yes Ultrasound (thermal/non thermal): Yes For the Purpose of:: To decrease pain, To increase ROM, To improve health of ti ssue, To decrease soft tissue restriction Thank you for the opportunity to evaluate your patient. For Medicare and Medicare HMO plans, please review the plan of care and approve it. It will need to be FAXED BACK to us at [phone] for Medicare purposes. For Medicare only, by signing this I certify the plan of care. Please let me know if there are questions or concerns regarding this plan of care. Physician Signature: Date:
== END 2018-07-19 19:00 | disposition home or self-care (01) ==
LOC: PT 13:30
PROVIDERS: Family Provider Internal Medicine; PCP Internal Medicine; Referring Provider Anesthesiology Pain Medicine; Visit Provider Anesthesiology Pain Medicine
DX: M54.9 Dorsalgia, unspecified (principal); R26.9 Unspecified abnormalities of gait and mobility
CPT/HCPCS: 97110; 97162; 97530

== ENCOUNTER 2018-08-05 12:31 | Emergency (ER) | payer MEDICARE, SELFPAY ==
[2018-08-05 12:33] VITALS: BP 121/35; PULSE 51; RESP 16; TEMP 36.6; O2SAT 88; BMI 39.6
--- NOTE | 2018-08-05 13:44 | RAD_ITS ---
STUDY: X-RAY CHEST REASON FOR EXAM: Female, 73 years old. Chest pain, weakness TECHNIQUE: Single AP portable view of the chest. COMPARISON: October 22, 2016 chest x-ray FINDINGS: The interstitial markings are mildly prominent. Findings are relatively stable when compared to prior study. There is no demonstrated pleural abnormality. There is mild cardiac enlargement. Normal mediastinum and nancy. Normal visualized pulmonary arteries. Normal visualized aortic arch and descending thoracic aorta. There are diffuse degenerative changes of the visualized thoracic spine. Normal visualized ribs, clavicles, and shoulders. There is no demonstrated abnormality of the visualized soft tissue structures of the upper abdomen. RAD/Chest 1 View (Portable) IMPRESSION: Chronic appearing lung markings no evidence of acute focal infiltrate. Electronically Signed: Renetta Miller MD at 15:06 EDT Tel , Service support ,
--- NOTE | 2018-08-05 13:44 | EKG12_ITS ---
Test Reason : SYNCOPE Blood Pressure : / mmHG Vent. Rate : 049 BPM Atrial Rate : 049 BPM P-R Int : 176 ms QRS Dur : 098 ms QT Int : 470 ms P-R-T Axes : 052 040 083 degrees QTc Int : 424 ms Sinus bradycardia Cannot rule out Inferior infarct , age undetermined Abnormal ECG Confirmed by KOBE ROSS, JO ANN ([id number]), science editor MARIANELA OBRIEN ([id number]) on 08/07/2018 7:43:52 AM Referred By: ALEX Confirmed By:JO ANN BULLOCK MD
[2018-08-05] MEDS: 0.9% Normal Saline 1,000 ML 150 ML IV (14:13)
[2018-08-05 14:16] LABS: Bedside Glucose 129 mg/dL (70-110)
[2018-08-05 14:19] LABS: Absolute Lymphocyte Count 0.47 X10^3/ul (0.83-4.51); Absolute Neutrophil Count 7.2 X10^3/uL (2.0-7.7); Basophil# 0.01 X10^3/uL; Basophil% 0.1 % (0-1); Eosinophil# 0.21 X10^3/uL; Eosinophils% 2.5 % (0-5); Hematocrit 37.2 % (37-47); Hemoglobin 11.7 g/dl (12.0-15.0); Lymphocyte # 0.47 X10^3/ul (4.0); Lymphocyte % 5.5 % (19-41); Mean Corp Hgb Conc 31.5 g/gl (32-36); Mean Corpuscular Hgb 26.1 pg (27.0-32.0); Mean Corpuscular Volume 82.9 fL (81-99); Mean Platelet Vol. 9.1 fl (6.2-12.0); Monocyte% 7.1 % (0-10); Neutrophil # 7.19 X10^3/uL (2.7-7.7); Neutrophil % 84.6 % (47-70); Platelet Count 204 K/mm3 (150-450); RBC Distribution Width CV 16.3 % (11.6-14.6); RBC Distribution Width SD 48.6 fl (35.1-43.9); Red Blood Count 4.49 M/mm3 (4.2-5.4); White Blood Count 8.5 K/mm3 (4.4-11.0)
[2018-08-05 14:20] LABS: Differential Indicated SCAN CRITERIA MET; POSITIVE COUNT NO; POSITIVE DIFFERENTIAL YES; POSITIVE MORPHOLOGY NO
[2018-08-05 14:34] LABS: Anion Gap 7 (5-15); BUN 14 mg/dL (7-18); BUN/Creat Ratio 11.6 RATIO (10-20); Calcium,Total 8.4 mg/dL (8.5-10.1); Chloride 100 mmol/L (98-107); Creatinine, Serum 1.21 mg/dL (0.55-1.02); EST Glomerular Filtration Rate 46 mL/min (>60); Est Glom Filt Rate - Afr Amer 56 mL/min (>60); Estimated Creatinine Clearance 39.67 ml/min; Glucose 123 mg/dL (74-106); Potassium 4.3 mmol/L (3.5-5.1); Sodium Level 130 mmol/L (136-145)
[2018-08-05 14:36] VITALS: BP 129/60; PULSE 52; RESP 15; O2SAT 95
--- NOTE | 2018-08-05 15:20 | ED.DCSUM_ITS ---
- ER Visit Summary Date of Service: 08/05/18 Chief Complaint: Weakness History of Present Illness: The patient is a 73 F who was discharged [facility] yesterday after being diagnosed with renal cancer. Patient took oxycodone this morning. 15 minutes later she felt lightheaded as if she is going to pass out had some chest heaviness and shortness of breath. Symptoms are improving at this time but not completely resolved. Patient states that she did take oxycodone when she was in the hospital. She had toast with her medicine this morning but did not eat a full meal. Physical Examination: Vital signs significant for heart rate of 51 and pulse ox of 88% on room air. Patient sitting upright in bed no acute distress. She is alert and talkative. Head and neck examination unremarkable. Heart is bradycardic. Lung sounds clear. Abdomen is soft and nontender. Extremity examination was 1+ edema that is symmetric in the lower extremities. Neuro exam reveals no focal deficits. Test Results: EKG is sinus bradycardia at [address] change. CBC was normal white count with hemoglobin of 11.7. Chemistry studies reveal a sodium of 130 and a creatinine 1.21. Glucose is 123. Troponin is less than 0.015. I did review her discharge summary from yesterday. Creatinine was 1.15 and sodium was listed at 136. Emergency Department Course and Treatment: Patient was given IV fluids here. In review of her discharge summary she was noted to be bradycardic when she was in the hospital with heart rates in the 50s. Her pulse ox at the time of discharge was 94% on room air. On repeat evaluation patient sitting upright in bed with no complaints. She states that she is hungry. Oxygen is turned off and sats remain in the 93 to 95% range. She will be discharged home with family at this time. She will be sure to eat food with her oxycodone. She will follow-up with Dr. Evans as planned. Treatment Plan: [] Disposition: Discharge Impression: Weakness, improved This note was generated with [employer] dictation software. It may contain incorrect words, spelling, and punctuation that were not noted in review of the chart prior to signing ED Disposition - Plan for ED Patient: Disposition: Home or Assisted Living Instructions: WEAKNESS, Unk Cause Referrals: Maykel Evans DO [STAFF PHYSICIAN] - As soon as possible Zach Chávez MD [Primary Care Provider] - 1 Week
[2018-08-05 15:24] VITALS: BP 149/68; PULSE 58; RESP 16; O2SAT 92
== END 2018-08-05 15:57 | disposition home or self-care (01) ==
PROVIDERS: Emergency Provider Emergency Medicine; Family Provider Internal Medicine; PCP Internal Medicine
DX: R53.1 Weakness (principal); C64.9 Malignant neoplasm of unspecified kidney, except renal pelvis; Z79.82 Long term (current) use of aspirin; Z79.02 Long term (current) use of antithrombotics/antiplatelets; Z79.899 Other long term (current) drug therapy; Z86.73 Personal history of transient ischemic attack (TIA), and cerebral infarction without residual deficits
CPT/HCPCS: 71045; 80048; 82962; 84484; 85025; 93005; 99285